=== PATIENT | male | born 1975 | race Caucasian/White ===

== ENCOUNTER 2017-05-11 13:21 | Observation (INO) | payer OTHER ==
[~2017-05-11] VITALS: Ht 167.6 cm; Wt 91.2 kg
[2017-05-11] VITALS (11 sets, daily range): BP systolic 125–140; BP diastolic 68–88; PULSE 59–90; RESP 13–20; O2SAT 95–98
--- NOTE | 2017-05-11 13:23 | ED.REPORT ---
HPI-Stroke / CVA May 11, 2017 ED Provider: Mateus Naik MD Patient is a 42 year old male who presents to the ED via EMS complaining of sudden onset left sided facial numbness onset 1305. Associated symptoms including blurred vision of his left eye, diaphoresis, dizziness and feeling confused. He also reports having a headache yesterday that has since resolved. Per the patient's boss, he was working on the computer when he began staring off , sweating and shaking. Then he told her that he was having spotty vision and didn't feel right. Patient denies neck pain. He states this has never happened before. Nursing Notes Stated Complaint: STROKE Nursing Notes Reviewed: Yes Allergies: Coded Allergies: Iodine and Iodide Containing Produc (Verified Allergy, Severe, 05/11/17) No Active Prescriptions or Reported Meds General Time Seen by Provider: 13:20 Chief Complaint Numbness Face left Hx Obtained From: Patient Arrived By: Ambulance Time last known well 1305 Sudden in Onset?: Yes Symptom Duration: Since onset Progression Since Onset: Waxes and wanes Severity: Current: No pain currently Associated with: Reports: Confusion Similar Sx Previous: No Risk Factors NIH Stroke Scale Level of Consciousness: Alert and responsive (0) Ask Month & Age: Both questions right (0) 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 (0) Horizontal EO Movements: None (0) Visual Reynolds: No visual loss (0) Facial Palsy: Normal symmetry (0) Right Arm Motor Drift (10s): No drift 10 sec (0) Left Arm Motor Drift (10s): No drift 10 sec (0) Right Leg Motor Drift (5s): No drift 5 sec (0) Left Leg Motor Drift (5s): No drift 5 sec (0) Limb Ataxia FNF/Heel-Johnson: Ataxia in 1 limb (1) (on the left) Sensation (Arms/Legs/Face): Pinprick less sharp (1) (decreased sensation on the left side of face) Language Aphasia: No aphasia, normal (0) Dysarthria: No dysarthria, normal (0) Extinction/Inattention: No exctinct/inattent (0) NIHSS Score: 2 Time NIHSS Performed: 13:31 Date NIHSS Performed: May 11, 2017 )( CVA Risk Stratification No Age >60, No Anticoag/bleed diathesis, No Prior CVA/TIA Risk factors reviewed Past Medical History Past Medical History none reported Smoking History Current Every Day Smoker Ambulatory Status Independent Review of Systems Eyes: Reports: Blurred left Musculoskeletal: Denies: Neck pain Skin: Reports Diaphoresis Neurologic: Reports: Dizziness, Numbness, Shaking, Vision change, Denies: Headache Psychiatric: Reports: Confusion Complete sys rev & neg: except as marked. Physical Exam Initial Vital Signs Vital Signs (First) Date Time Temp Pulse Resp B/P Pulse Ox O2 Delivery O2 Flow Rate FiO2 05/11/17 13:43 90 18 135/88 98 Room Air 05/11/17 15:52 36.4 General/Constitutional: Awake, Alert Head / Eyes: Atraumatic, Normocephalic, PERRL, EOMI decreased sensation on the left side Neck: Atraumatic, Supple Respiratory / Chest: Atraumatic, Breath sounds NL, Breath sounds = bilat, No respiratory distress Cardiovascular: Heart rate NL, Regular rhythm, Heart sounds NL Neurologic: Oriented X3, Speech NL decreased sensation on the left upper extremity delayed responses to month and year but able to answer correctly Upper Extremity / MS: Atraumatic, Inspection NL Lower Extremity / Pelvis / MS: Atraumatic, Inspection NL Skin: Atraumatic, Color NL, No rash, Warm, Dry Interpretation & Diagnostics Lab Results Interpretation Result Diagram: 05/12/17 0550 05/12/17 0550 Test 05/11/17 13:21 05/11/17 13:24 Prothrombin Time 9.5sec (8.1-12.5) Prothromb Time International Ratio 0.89ratio Activated Partial Thromboplast Time 25.6sec (22.8-33.0) Hemoglobin A1c 5.5% (4.8-5.6) Troponin T < 0.010ug/L (0.0-0.011) Triglycerides Level 59mg/dL (0-149) Cholesterol Level 160mg/dL (100-199) LDL Cholesterol, Calculated 98.200mg/dL (0-99) VLDL Cholesterol 11.800mg/dL HDL Cholesterol 50mg/dL (>39) Cholesterol/HDL Ratio 3.20 (0.0-4.4) ECG Interpretation ECG Interpretation: T wave inversion isolated in lead [address], T changes Time: 13:37 Interpreted by: ED physician Normal ECG Interpretation: Normal rate (80), Normal sinus rhythm X-Ray Chest Interpretation Chest Xray Interpretation: IMPRESSION: No acute disease Dictated by: Tye Draper M.D. on 05/11/2017 at 13:32 Approved by: Tye Draper M.D. on 05/11/2017 at 13:33 Interpretation / Wet Read by: Interpret - Radiologist CT Head Interpretation IMPRESSION: Normal CT brain scan, no intracranial hemorrhage or secondary signs of acute ischemic infarct. This study fulfills neurological imaging criteria for inclusion or exclusion of acute stroke therapies based on available published neurological imaging guidelines. Dictated by: Claudio Ceja M.D. on 05/11/2017 at 13:30 Approved by: Claudio Ceja M.D. on 05/11/2017 at 13:31 Interpretation / Wet Read by: Interpret - Radiologist Re-Eval/Medical Decision Med Decision/Clinical Course 42-year-old male presenting with episode of confusion, blurry vision, left-sided numbness. Code stroke on arrival. All symptoms resolved other than mild confusion and left facial numbness on arrival. CT scan no acute pathology. Discussed with stroke neurology at [facility] who recommended no TPA given low stroke scale. Recommended admission for her mental status, stroke workup. Labs unremarkable as above. Patient will be admitted for TIA stroke workup and altered mental status workup. Cannot rule out seizure versus other. Re-Evaluation/Progress : Time of Eval: 14:20 Re-Evaluation/Progress Note: Discussed results and plan for admit. Patient understands and agrees to plan. All questions were addressed Consultation #1: Consulted With: Neurology Call Returned at: 13:44 Note: Consult with Dr. Ramos, neurology at [facility], who recommends no tPA but admit for altered mental status and workup with non emergent CT anigo. Consultation #2: Referral / Consult Name: ANNIE TREVIZO DO Consulted With: Hospitalist Call Returned at: 16:37 Functional Tester Typewriters: Agrees with eval, Agrees with plan, Accepts admit Counseled Regarding: Diagnosis, Lab results, Need for admission Patient Discharge & Departure Impression: Primary Impression: Altered mental status Altered mental status type: disorientation Qualified Code: R41.0 - Disorientation, unspecified Additional Impression: TIA (transient ischemic attack) Transient cerebral ischemia type: unspecified Qualified Code: G45.9 - Transient cerebral ischemic attack, unspecified Disposition: ADMITTED TO HOSPITAL Discharge Condition All VS Reviewed: Yes Condition: Stable Referrals: NOPCP (PCP) Crit Care Except Billable Proc Time Spent: 30-74 minutes (41 minutes) Services Performed: Patient management by me, Time spent at bedside, Reviewing test results, Reviewing imaging, Discussing patient care, Documentation in record Scribe Attestation Portions of this note were transcribed by Odalys Brunson. I, Dr. Naik personally performed the history, physical exam and medical decision-making; I reviewed and confirmed the accuracy of the information in the transcribed note. Signed by: Kaity Adhikari, 05/11/17. Mateus Naik MD May 11, 2017 13:23 Whit Brunson May 11, 2017 13:36 Triglycerides Level 59mg/dL (0-149) Cholesterol Level 160mg/dL (100-199) LDL Cholesterol, Calculated 98.200mg/dL (0-99) VLDL Cholesterol 11.800mg/dL HDL Cholesterol 50mg/dL (>39) Cholesterol/HDL Ratio 3.20 (0.0-4.4) ECG Interpretation ECG Interpretation: T wave inversion isolated in lead [address], T changes Time: 13:37 Interpreted by: ED physician Normal ECG Interpretation: Normal rate (80), Normal sinus rhythm X-Ray Chest Interpretation Chest Xray Interpretation: IMPRESSION: No acute disease Dictated by: Tye Draper M.D. on 05/11/2017 at 13:32 Approved by: Tye Draper M.D. on 05/11/2017 at 13:33 Interpretation / Wet Read by: Interpret - Radiologist CT Head Interpretation IMPRESSION: Normal CT brain scan, no intracranial hemorrhage or secondary signs of acute ischemic infarct. This study fulfills neurological imaging criteria for inclusion or exclusion of acute stroke therapies based on available published neurological imaging guidelines. Dictated by: Claudio Ceja M.D. on 05/11/2017 at 13:30 Approved by: Claudio Ceja M.D. on 05/11/2017 at 13:31 Interpretation / Wet Read by: Interpret - Radiologist Re-Eval/Medical Decision Re-Evaluation/Progress : Time of Eval: 14:20 Re-Evaluation/Progress Note: Discussed results and plan for admit. Patient understands and agrees to plan. All questions were addressed Consultation #1: Consulted With: Neurology Call Returned at: 13:44 Note: Consult with Dr. Ramos, neurology at [facility], who recommends no tPA but admit for altered mental status and workup with non emergent CT anigo. Consultation #2: Referral / Consult Name: ANNIE TREVIZO DO Consulted With: Hospitalist Call Returned at: 16:37 Functional Tester Typewriters: Agrees with eval, Agrees with plan, Accepts admit Counseled Regarding: Diagnosis, Lab results, Need for admission Patient Discharge & Departure Impression: Primary Impression: Altered mental status Altered mental status type: disorientation Qualified Code: R41.0 - Disorientation, unspecified Additional Impression: TIA (transient ischemic attack) Transient cerebral ischemia type: unspecified Qualified Code: G45.9 - Transient cerebral ischemic attack, unspecified Disposition: ADMITTED TO HOSPITAL Discharge Condition All VS Reviewed: Yes Condition: Stable Referrals: NOPCP (PCP) Crit Care Except Billable Proc Time Spent: 30-74 minutes (41 minutes) Services Performed: Patient management by me, Time spent at bedside, Reviewing test results, Reviewing imaging, Discussing patient care, Documentation in record Scribe Attestation Portions of this note were transcribed by Odalys Brunson. I, Dr. Naik personally performed the history, physical exam and medical decision-making; I reviewed and confirmed the accuracy of the information in the transcribed note. Signed by: Kaity Adhikari, 05/11/17. Mateus Naik MD May 11, 2017 13:23 Whit Brunson May 11, 2017 13:36
[2017-05-11 13:29] LABS: BASOPHILS % (AUTO) 0.2 % (0-3); EOSINOPHILS % (AUTO) 2.2 % (0-5); MONOCYTES % (AUTO) 5.2 % (4-12); Mean Corpuscular Hemoglobin 30.4 pg (27.0-35.0); Mean Corpuscular Volume 87.7 fL (81-100); NEUTROPHILS % (AUTO) 59.6 % (40-74); Platelet Count 383 bil/L (150-400)
--- NOTE | 2017-05-11 13:33 | DRSVH ---
PROCEDURE: CT BRAIN TPA INDICATIONS: Stroke TECHNIQUE: Noncontrast 4.5 mm thick angled axial sections acquired from the foramen magnum to the vertex, with c oronal reformats. COMPARISON: None. FINDINGS: Image quality: Excellent. CSF spaces: Basal cisterns are patent. No extra-axial fluid collections. Ventricles are normal in size and shape. Brain: No midline shift. No intracranial masses or hemorrhage. Heredia-white matter interface is norm al. Skull and face: Calvarium and visualized facial bones are intact, without suspicious lesions. Sinuses: Visualized sinuses and mastoids are clear. IMPRESSION: Normal CT brain scan, no intracranial hemorrhage or secondary signs of acute ischemic infarct. This study fulfills neurological imaging criteria for inclusion or exclusion of acute stroke therapie s based on available published neurological imaging guidelines. Dictated by: Claudio Ceja M.D. on 05/11/2017 at 13:30 Approved by: Claudio Ceja M.D. on 05/11/2017 at 13:31
[2017-05-11 13:44] LABS: INR 0.89 ratio
[2017-05-11 13:52] LABS: TROPONIN T < 0.010 ug/L (0.0-0.011)
--- NOTE | 2017-05-11 14:35 | DRSVH ---
PROCEDURE: X-RAY CHEST ONE VIEW, PORTABLE ([id number]) INDICATIONS: dyspnea TECHNIQUE: One view of the chest was acquired. COMPARISON: [facility], , XR CHEST 2VW, 06/08/2015, 11:55. FINDINGS: Surgical changes and devices: None. Lungs and pleura: No pleural effusions or pneumothorax. Lungs are clear. Mediastinum: Mediastinal contours appear normal. Heart size is normal. Bones and chest wall: No suspicious bony lesions. Overlying soft tissues appear unremarkable. IMPRESSION: No acute disease Dictated by: Tye Draper M.D. on 05/11/2017 at 13:32 Approved by: Tye Draper M.D. on 05/11/2017 at 13:33
[2017-05-11] MEDS ORDERED: Labetalol 5 mg/mL 20 mL Inj IVPUSH PRN (16:10)
[2017-05-11] MEDS ORDERED: Polyethylene Glycol (PEG) 17 Gm Powder PO PRN (16:10)
[2017-05-11] MEDS ORDERED: Alum-Mag Hydrox-Simeth 30 mL Suspension PO PRN (16:10)
[2017-05-11] MEDS ORDERED: Ondansetron 2 mg/mL 2 mL Inj IVPUSH PRN (16:10)
[2017-05-11] MEDS ORDERED: hydrALAZINE 20 mg/mL Inj IVPUSH PRN (16:10)
--- NOTE | 2017-05-11 16:13 | NUR ---
Evaluation completed. Please go to "Notes" then click on "Assessments and Notes" (bottom left corner of screen). Then select appropriate discipline tab on top of screen.
--- NOTE | 2017-05-11 17:10 | PCM.HPMED ---
Subjective Date of Service May 11, 2017 Primary Provider: Admitting Physician: Nuris Maxwell MD Primary Care Physician: Matty Attending Physician: Nuris Maxwell MD Admit Status: From the Emergency Department, Admit to [facility] Team Chief Complaint: Altered mental status, possible TIA History of Present Illness: Mr. Petty is a 42-year-old male with no reported past medical history who presents to the ED via EMS secondary to strokelike symptoms. 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 today (one half hour into his shift) his sales service manager noticed that he began to stare into space and was sweaty and shaking. When asked how he felt he stated that he was having spotty vision and "did not feel right. During interview in the emergency department with mother present he states that he had a sudden onset of left-sided facial numbness, left sided blackened vision and left sided upper and lower extremity weakness/numbness. This was accompanied by a generalized confusion. At time of interview these symptoms had mostly resolved though he still states mild weakness in his left upper lower extremities as well as a right temporal headache. He is awake and alert and able to answer questions appropriately He states that this has never happened to him before, denies alcohol use, occasionally smokes marijuana - last use 2 days prior, and denies any other drug use. He is a one pack per day smoker, states he has a very poor diet consisting of fast food, often wakes up at night to snack. He leads a sedentary lifestyle, last night playing online computer games until approximately 0200 hours, and he does state that last night while playing these games he did develop a slight headache which he took aspirin for was some relief. He states he has had mild headaches on and off over the last 2 weeks and at time of interview states he is having a right temporal headache. Denies chest pain, shortness of breath, abdominal pain, GI or complaints, numbness or tingling in his extremities. Does state left upper lower extremity weakness. He denies any sick contacts, no current sexual contacts last intercourse May 2016. Travel to [place] last year, travel to [place] in 1995. In the emergency department chest x-ray and CT brain noncontrast were negative. Patient was given aspirin 300 mg via rectal suppository. Lab studies unremarkable. ER [facility] consult with Dr. Ramos, neurology at [facility] who recommended no TPA but admitted for altered mental status workup with nonemergent CT angiogram. Urinalysis pending at time of dictation. Review of Systems: A comprehensive review of systems was conducted with the patient and found to be negative except as above in the history of present illness. Allergies Coded Allergies: Iodine and Iodide Containing Produc (Verified Allergy, Severe, 05/11/17) Home Medications None PMH Patient reports right rotator cuff injury 6 + years ago, no surgical intervention Surgical History Patient reports none Family History Per patient and patient's mother present in the room: Maternal grandfather: passed from heart attack/stroke Paternal grandmother: with pacemaker Aunt: diabetes mellitus, heart disease Father: obesity status post gastric bypass surgery, intention tremor Mother: Healthy Social History Hx Alcohol Use: No Hx Substance Use: Yes (very infrequent / pot/// ) Smoking Status: Current Every Day Smoker (1 pack per day smoker) Exam Vital Signs Vital Sign - Last Date Time Temp Pulse Resp B/P Pulse Ox O2 Delivery O2 Flow Rate FiO2 05/11/17 15:52 36.4 64 13 127/78 98 Room Air Exam General: Awake and alert sitting up in ER [facility] in no acute distress, well- developed, well-nourished, appropriately interactive HEENT: Normocephalic, atraumatic. External ears without defect. Pupils equal, round, and reactive to light and accommodation. Oropharynx free of erythema and cobble stoning with moist mucosa. Neck: Supple with full range of motion. No jugular venous distension. No bruits. No lymphadenopathy or thyromegaly. Cardiovascular: Regular rate and rhythm with no murmurs, rubs, or gallops appreciated Pulmonary: Clear to auscultation bilaterally with no crackles, wheezes, or rhonchi. Normal respiratory effort with no use of accessory muscles. Abdomen: Bowel tones present. Soft, nontender, nondistended. No hepatosplenomegaly or masses appreciated. Extremities: No clubbing, cyanosis, edema. Mild left upper lower extremity weakness during strength testing. Skin: Normal temperature, turgor, and texture Neurological: Cranial nerves grossly intact. Psychiatric: Normal mood and affect. Alert and oriented to person, place, and time. Lab and Diagnostics Result Diagram: 05/11/17 1324 05/11/17 1324 X-Rays, CTs and MRIs . X-RAY CHEST ONE VIEW, PORTABLE IMPRESSION: No acute disease Dictated by: Tye Draper M.D. on 05/11/2017 CT BRAIN TPA IMPRESSION: Normal CT brain scan, no intracranial hemorrhage or secondary signs of acute ischemic infarct. This study fulfills neurological imaging criteria for inclusion or exclusion of acute stroke therapies based on available published neurological imaging guidelines. Dictated by: Claudio Ceja M.D. on 05/11/2017 Additional Diagnostics: NIH Stroke Scale Level of Consciousness: Alert and responsive (0) Ask Month & Age: Both questions right (0) Open/Close Eyes/Hand Tax Record Clerk: Performs both tasks (0) Horizontal EO Movements: None (0) Visual Reynolds: No visual loss (0) Facial Palsy: Normal symmetry (0) Right Arm Motor Drift (10s): No drift 10 sec (0) Left Arm Motor Drift (10s): No drift 10 sec (0) Right Leg Motor Drift (5s): No drift 5 sec (0) Left Leg Motor Drift (5s): No drift 5 sec (0) Limb Ataxia FNF/Heel-Johnson: Ataxia in 1 limb (1) (on the left) Sensation (Arms/Legs/Face): Pinprick less sharp (1) (decreased sensation on the left side of face) Language Aphasia: No aphasia, normal (0) Dysarthria: No dysarthria, normal (0) Extinction/Inattention: No exctinct/inattent (0) NIHSS Score: 2 Time NIHSS Performed: 13:31 Date NIHSS Performed: May 11, 2017 Assessment & Plan Mr. Petty is a 42-year-old male with no reported past medical history who is admitted for possible TIA. Altered mental status. POA. Under evaluation Possibly secondary to TIA, symptoms mostly resolved at time of admit CT imaging as above Current every day smoker, lipid panel within normal limits MR stroke protocol pending Echo pending ASA given in ED Urine pending Swallow eval pending Continue neuro checks Continue to monitor Disposition: Patient admitted under observational status pending MR stroke protocol GI Prophylaxis: H2 crescencio VTE Prophylaxis: Sub-Q Heparin (Unfractionated) Resuscitation Status: CPR: Attempt Resuscitation ANNIE TREVIZO DO May 11, 2017 17:10
--- NOTE | 2017-05-11 18:49 | NUR ---
Admit Pt admitted to [facility] room 3025 at approx 1830. Report received from HERIBERTO Ventura. Pt alert and oriented x4. Denies any pain, dizziness, nausea. Parents at bedside. Weight and VS obtained. Telemetry applied. Cares continue.
--- NOTE | 2017-05-11 20:50 | NUR ---
Admit/Neuro: Pt AOx3, speech clear. Pt states he has numbness on L side of face, smile asymmetrical with tongue deviation to the R. 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 Pt c/o GARCIA 11/07, refuses medication at this time. Pt educated on s/s of stroke and to contact nursing staff if any changes. Tele SR 80's per monitoring manager. Pt refused nicotine patch and Pepcid, offered care notes on statin, pt refused. Pt pleasant and cooperative with care. Admit complete.
--- NOTE | 2017-05-11 20:54 | NUR ---
Off floor for MRI Pt left floor at 2044 for MRI. Addendum: 05/11/17 at 2151 by CODY LEARY RN Back from MRI around 2139; tele back on
--- NOTE | 2017-05-11 22:24 | DRSVH ---
PROCEDURE: MRI STROKE PROTOCOL ([id number]) Pre- and post-contrast brain MRI, non-contrast brain MR angiogram, pre- and postcontrast neck MR eliane ogram INDICATIONS: TIA TECHNIQUE: Brain: Noncontrast axial T1 spin echo, axial T2 fast spin echo, sagittal and axial FLAIR, coronal T2 fast spin echo, axial gradient echo, axial diffusion and ADC through the brain. After the administr ation of contrast, axial 3D VIBE of the cranial vasculature and brain. Brain MRA: Non-contrast 3-D time of flight MR angiogram, with multiple glctrif-uhbuhjblo-zaxcmqfvrs (MIP) reformats performed. Neck MRA: Axial and sagittal TruFISP through the neck. Coronal dynamic MR angiogram during administ ration of contrast in the arterial and venous phases, with 3-dimenstional cbbdvib-zdxxmmqqy-vwjlpnrjo n (MIP) reformats constructed from subtraction images. COMPARISON: None. FINDINGS: Image quality: Excellent. BRAIN: CSF spaces: Ventricles are normal in size and shape. Basal cisterns are patent. No extra-axial flu id collections. Brain: No intracranial bleeds or mass effects. Heredia-white matter interface is normal. Diffusion we ighted images show no acute ischemic insults. Brainstem appears normal. Normal intravascular flow v oids are present. No abnormal intracranial enhancement. There is several foci of T2/FLAIR hyperinte nse signal within the periventricular regions particularly around the frontal horns bilaterally. Skull and face: Calvarial marrow signal is normal. Orbits appear normal. Sinuses: Sinuses and mastoids are clear. BRAIN MR ANGIOGRAM: Anterior circulation: Intracranial internal carotid arteries are normal in size and enhancement. Th e flow within the paired anterior cerebral arteries is normal and symmetric. The flow within the mid dle cerebral arteries is normal and symmetric. The anterior communicating artery is seen. No stenos es, occlusions, or aneurysms. Posterior circulation: The visualized portions of the vertebral arteries demonstrate normal caliber, and join to form a normal appearing basilar artery. The flow within the posterior cerebral arteries is normal and symmetric. No stenoses, occlusions, or aneurysms. NECK MR ANGIOGRAM: Carotids: Great vessels demonstrate a conventional anatomy as they arise from the aortic arch. The origins of the common carotid arteries appear patent. The calibers and courses of both common caroti d arteries are normal. The bifurcation regions appear normal bilaterally. The internal carotid silvina jj demonstrate normal course and caliber. Posterior circulation: The origins of the vertebral arteries appear patent. More superior portions of both vertebral arteries demonstrate normal course and caliber, and join to form a normal appearing basilar artery. Miscellaneous: Subclavian arteries appear patent. Pre-contrast images through the neck show no soft tissue abnormalities. IMPRESSION: 1. No acute intracranial process. No acute ischemia. 2. Focal periventricular hyperintense signal is above. It is overall nonspecific. This could be relat ed to early changes of chronic microvascular ischemia. However, given patient's age, etiologies such as migraine sequela, vasculitis or potentially demyelinating disease should be considered as appropri ate. 3. No areas of hemodynamically significant stenosis, vascular occlusion or aneurysmal dilation within the anterior circulation. 4. No areas of hemodynamically significant stenosis, vascular occlusion or aneurysmal dilation within the posterior circulation. 5. No areas of hemodynamically significant stenosis, vascular occlusion or aneurysmal dilation within the neck vasculature. The estimate of stenosis included in the report of the imaging study was calculated using the NASCET method Dictated by: Rebecca Kamara M.D. on 05/11/2017 at 22:18 Approved by: Rebecca Kamara M.D. on 05/11/2017 at 22:23
[2017-05-12 00:05] VITALS: PULSE 60
[2017-05-12 00:09] VITALS: BP 114/73; PULSE 58; RESP 18; O2SAT 97
[2017-05-12] MEDS: Heparin 5,000 Unit/mL Inj SUBQ SCH ×2 (01:03→08:47)
--- NOTE | 2017-05-12 04:15 | NUR ---
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 Smile still asymmetrical with improvement throughout the night. AOx3, pleasant and cooperative with care.
[2017-05-12 04:38] VITALS: BP 100/64; PULSE 55; RESP 18; O2SAT 96
[2017-05-12 06:21] LABS: BASOPHILS % (AUTO) 0.2 % (0-3); EOSINOPHILS % (AUTO) 3.7 % (0-5); MONOCYTES % (AUTO) 5.8 % (4-12); Mean Corpuscular Hemoglobin 30.6 pg (27.0-35.0); Mean Corpuscular Volume 88.9 fL (81-100); NEUTROPHILS % (AUTO) 49.6 % (40-74); Platelet Count 311 bil/L (150-400)
[2017-05-12 09:01] VITALS: PULSE 61
[2017-05-12 09:17] VITALS: BP 113/75; PULSE 64; RESP 18; O2SAT 94
--- NOTE | 2017-05-12 09:36 | NUR ---
Evaluation completed. Please go to "Notes" then click on "Assessments and Notes" (bottom left corner of screen). Then select appropriate discipline tab on top of screen.
--- NOTE | 2017-05-12 11:51 | PCM.DIMED ---
Discharge Instructions Date of Service May 12, 2017 Dates of Hospitalization May 11, 2017 at 16:09 Discharge Diagnosis Discharge Diagnosis acute dx probable TIA or early demyelinating disease Diet Discharge Diet: Low fat, Low Sodium, Heart Healthy Call your provider Call your provider for: Other (blurry vision, worsening weakness, numbness) Patient Instructions Patient Instructions You were hospitalized with symptoms concerning for stroke. CT scan and MRI and MR angiogram didn't show any evidence of acute stroke but abnormal findings. Since your condition already improved clinically, you were released from hospital. Please follow up echocardiogram result with new primary doctor and follow up with neurologist as well. Please monitor your symptoms closely, if it gets worse, please return to hospital immediately Follow-up Provider: [facility] Follow-up with PCP in: 1 week Provider: Wale Jolly MD Follow-up in: 2 weeks Nuris Maxwell MD May 12, 2017 11:51
--- NOTE | 2017-05-12 12:03 | DRSVH ---
[facility] [address] [place] [address] Echocardiogram Report Name: ALBAN MORRISON Date: 05/12/2017 Height: 66 in Hospital Exam Location: [facility] Weight: 201 lb Gender: Male BSA: 2.0 m2 : 1975 Age: 42 yrs BP: 100/64 mmHg Reason For Study: TIA Ordering Physician: Performed By: Lynda Muniz Interpretation Summary Left ventricular wall thickness is borderline increased. The ejection fraction is estimated to be 55-60%. Injection of contrast documented no interatrial shunt. There is no significant valvular heart disease. Procedure: A two-dimensional transthoracic echocardiogram with color flow and Doppler was performed. The study quality was technically adequate. There is no prior echocardiogram noted for this patient. A saline contrast injection was performed to assess for cardiac shunting. The patient was in normal sinus rhythm during the exam. Left Ventricle: The left ventricle is normal in size. Left ventricular wall thickness is borderline increased. The ejection fraction is estimated to be 55-60%. There are no focal wall motion abnormalities. Assessment of diastolic parameters indicates normal left ventricular diastolic function and normal filling pressures. Right Ventricle: The right ventricle is normal in size and function. Atria: Both atria are normal in size. Injection of contrast documented no interatrial shunt. Mitral Valve: The mitral valve is normal in structure and function. The mitral valve leaflets are slightly calcified. There is trace mitral regurgitation. Aortic Valve: The aortic valve is normal in structure and function. No aortic regurgitation is present. Tricuspid Valve: The tricuspid valve is normal in structure and function. There is trace tricuspid regurgitation. The right ventricular systolic pressure is estimated at 26 mmHg assuming a right atrial pressure of 3 mm Hg. Pulmonic Valve: The pulmonic valve is not well visualized. Great Vessels: The aortic root is normal size. The ascending aorta is normal in size. The aortic arch is normal in size. The IVC is of normal diameter and collapses greater than 50% with a sniff. This suggests a low right atrial pressure of 3 mm Hg. Pericardium/ Pleura There is no pericardial effusion. MMode/2D Measurements & Calculations LVIDd: 4.3 cm RA long axis LVOT diam: 2.1 cm LVIDs: 2.7 cm LA A2 area: 14.9 cm AoV Opening FS: 36.7 % LA A4 area: 15.1 cm RA area EPSS: 0.06 cm LA length (vol) Ao root diam IVSd: 0.96 cm : 16.1 cm LVPWd: 1.1 cm LA vol: 37.2 ml RA vol asc Aorta Diam LA vol index : 40.0 ml RA Ao Arch Diam (Prox : 20.0 mm2 Trans): 2.7 cm IVC diam: 1.3 cm LV castro. diameter/BSA LV sys. diameter/BSA RVD1 (basal) RVD2 (mid): 2.6 cm (cm/m^2): 2.1 (cm/m^2): 1.3 TAPSE: 2.5 cm Doppler Measurements & Calculations Ao V2 max MV E max beau MV E/A: 2.0 TR max beau : 134.4 cm/sec : 100.6 cm/sec Med Peak E' Beau : 241.6 cm/sec Ao max PG MV A max beau TR max PG : 7.2 mmHg : 51.3 cm/sec E/E' med: 9.0 : 23.3 mmHg Ao mean PG MV P1/2t: 54.5 msec Lat Peak E' Beau PA V2 max : 110.8 cm/sec LVOT Max Beau E/E' lat: 5.3 PA mean PG : 102.5 cm/sec E/e' average: 7.1 PA Accel Time KING(I,D): 2.9 cm : 0.11 sec sev ratio MV dec time MV P1/2t max beau Ao V2 mean LV V1 max PG : 0.18 sec : 94.3 cm/sec MVA(P1/2t): 4.0 cm2 Ao V2 VTI: 26.5 cmLV V1 VTI KING(V,D): 2.7 cm2 : 21.2 cm PA V2 mean KING indexed to BSA : 72.1 cm/sec (cm^2/m^2): 1.4 Electronically signed by: Yusuf Hatch on [place] Physician:05/12/2017 12:02 PM
--- NOTE | 2017-05-12 13:15 | NUR ---
Discharge Pt discharged to home at 1313. Ambulatory off unit, accompanied by RN and mom. All pt belongings sent with pt, and money and credit cards retrieved from the safe. Discharge instructions given and explained. No new prescriptions given, and instructed to follow up with PCP and neurology. Pt verbalizes understanding.
--- NOTE | 2017-05-12 13:19 | NUR ---
Social Work-screening/discharge: Data:EMR reviewed. Pt is a 42 y/o male who was admitted on 05/11/17 for TIA per H&P. Pt's insurance is [id number] and PCP is Not listed. EMR reviewed. SW attempted to see pt, but SW updated by RN that pt has already discharged. PT/OT have cleared pt for home no needs.No MD order received. No discharge needs identified. All updated and agreeable to plan. Assessment:pt who is independent at baseline. Plan:Pt to discharge home today via POV. No discharge needs identified. All updated and agreeable to plan. EDITA Chu
--- NOTE | 2017-05-12 13:53 | NUR ---
Evaluation completed. Please go to "Notes" then click on "Assessments and Notes" (bottom left corner of screen). Then select appropriate discipline tab on top of screen.
--- NOTE | 2017-05-12 16:02 | PCM.DC.MED ---
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 COMPARISON: None. FINDINGS: Image quality: Excellent. CSF spaces: Basal cisterns are patent. No extra-axial fluid collections. Ventricles are normal in size and shape. Brain: No midline shift. No intracranial masses or hemorrhage. Heredia-white matter interface is normal. Skull and face: Calvarium and visualized facial bones are intact, without suspicious lesions. Sinuses: Visualized sinuses and mastoids are clear. IMPRESSION: Normal CT brain scan, no intracranial hemorrhage or secondary signs of acute ischemic infarct. This study fulfills neurological imaging criteria for inclusion or exclusion of acute stroke therapies based on available published neurological imaging guidelines. Dictated by: Claudio Ceja M.D. on 05/11/2017 at 13:30 Approved by: Claudio Ceja M.D. on 05/11/2017 at 13:31 PROCEDURE: MRI STROKE PROTOCOL ([id number]) Pre- and post-contrast brain MRI, non-contrast brain MR angiogram, pre- and postcontrast neck MR angiogram INDICATIONS: TIA TECHNIQUE: Brain: Noncontrast axial T1 spin echo, axial T2 fast spin echo, sagittal and axial FLAIR, coronal T2 fast spin echo, axial gradient echo, axial diffusion and ADC through the brain. After the administration of contrast, axial 3D VIBE of the cranial vasculature and brain. Brain MRA: Non-contrast 3-D time of flight MR angiogram, with multiple maximum- intensity-projection (MIP) reformats performed. Neck MRA: Axial and sagittal TruFISP through the neck. Coronal dynamic MR angiogram during administration of contrast in the arterial and venous phases, with 3-dimenstional nogthci-odvyedejb-vfdhlvxoxj (MIP) reformats constructed from subtraction images. COMPARISON: None. FINDINGS: Image quality: Excellent. BRAIN: CSF spaces: Ventricles are normal in size and shape. Basal cisterns are patent. No extra-axial fluid collections. Brain: No intracranial bleeds or mass effects. Heredia-white matter interface is normal. Diffusion weighted images show no acute ischemic insults. Brainstem appears normal. Normal intravascular flow voids are present. No abnormal intracranial enhancement. There is several foci of T2/FLAIR hyperintense signal within the periventricular regions particularly around the frontal horns bilaterally. Skull and face: Calvarial marrow signal is normal. Orbits appear normal. Sinuses: Sinuses and mastoids are clear. BRAIN MR ANGIOGRAM: Anterior circulation: Intracranial internal carotid arteries are normal in size and enhancement. The flow within the paired anterior cerebral arteries is normal and symmetric. The flow within the middle cerebral arteries is normal and symmetric. The anterior communicating artery is seen. No stenoses, occlusions, or aneurysms. Posterior circulation: The visualized portions of the vertebral arteries demonstrate normal caliber, and join to form a normal appearing basilar artery. The flow within the posterior cerebral arteries is normal and symmetric. No stenoses, occlusions, or aneurysms. NECK MR ANGIOGRAM: Carotids: Great vessels demonstrate a conventional anatomy as they arise from the aortic arch. The origins of the common carotid arteries appear patent. The calibers and courses of both common carotid arteries are normal. The bifurcation regions appear normal bilaterally. The internal carotid arteries demonstrate normal course and caliber. Posterior circulation: The origins of the vertebral arteries appear patent. More superior portions of both vertebral arteries demonstrate normal course and caliber, and join to form a normal appearing basilar artery. Miscellaneous: Subclavian arteries appear patent. Pre-contrast images through the neck show no soft tissue abnormalities. IMPRESSION: 1. No acute intracranial process. No acute ischemia. 2. Focal periventricular hyperintense signal is above. It is overall nonspecific. This could be related to early changes of chronic microvascular ischemia. However, given patient's age, etiologies such as migraine sequela, vasculitis or potentially demyelinating disease should be considered as appropriate. 3. No areas of hemodynamically significant stenosis, vascular occlusion or aneurysmal dilation within the anterior circulation. 4. No areas of hemodynamically significant stenosis, vascular occlusion or aneurysmal dilation within the posterior circulation. 5. No areas of hemodynamically significant stenosis, vascular occlusion or aneurysmal dilation within the neck vasculature. The estimate of stenosis included in the report of the imaging study was calculated using the NASCET method Dictated by: Rebecca Kamara M.D. on 05/11/2017 at 22:18 Approved by: Rebecca Kamara M.D. on 05/11/2017 at 22:23 . X-RAY CHEST ONE VIEW, PORTABLE IMPRESSION: No acute disease Dictated by: Tye Draper M.D. on 05/11/2017 CT BRAIN TPA IMPRESSION: Normal CT brain scan, no intracranial hemorrhage or secondary signs of acute ischemic infarct. This study fulfills neurological imaging criteria for inclusion or exclusion of acute stroke therapies based on available published neurological imaging guidelines. Dictated by: Claudio Ceja M.D. on 05/11/2017 Other Diagnostics NIH Stroke Scale Level of Consciousness: Alert and responsive (0) Ask Month & Age: Both questions right (0) Open/Close Eyes/Hand Water Regulator And Valve Repairer: Performs both tasks (0) Horizontal EO Movements: None (0) Visual Reynolds: No visual loss (0) Facial Palsy: Normal symmetry (0) Right Arm Motor Drift (10s): No drift 10 sec (0) Left Arm Motor Drift (10s): No drift 10 sec (0) Right Leg Motor Drift (5s): No drift 5 sec (0) Left Leg Motor Drift (5s): No drift 5 sec (0) Limb Ataxia FNF/Heel-Johnson: Ataxia in 1 limb (1) (on the left) Sensation (Arms/Legs/Face): Pinprick less sharp (1) (decreased sensation on the left side of face) Language Aphasia: No aphasia, normal (0) Dysarthria: No dysarthria, normal (0) Extinction/Inattention: No exctinct/inattent (0) NIHSS Score: 2 Time NIHSS Performed: 13:31 Date NIHSS Performed: May 11, 2017 Brief History HPI obtained on 05/11 Mr. Petty is a 42-year-old male with no reported past medical history who presents to the ED via EMS secondary to strokelike symptoms. 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 today (one half hour into his shift) his technical sales manager noticed that he began to stare into space and was sweaty and shaking. When asked how he felt he stated that he was having spotty vision and "did not feel right. During interview in the emergency department with mother present he states that he had a sudden onset of left-sided facial numbness, left sided blackened vision and left sided upper and lower extremity weakness/numbness. This was accompanied by a generalized confusion. At time of interview these symptoms had mostly resolved though he still states mild weakness in his left upper lower extremities as well as a right temporal headache. He is awake and alert and able to answer questions appropriately He states that this has never happened to him before, denies alcohol use, occasionally smokes marijuana - last use 2 days prior, and denies any other drug use. He is a one pack per day smoker, states he has a very poor diet consisting of fast food, often wakes up at night to snack. He leads a sedentary lifestyle, last night playing online computer games until approximately 0200 hours, and he does state that last night while playing these games he did develop a slight headache which he took aspirin for was some relief. He states he has had mild headaches on and off over the last 2 weeks and at time of interview states he is having a right temporal headache. Denies chest pain, shortness of breath, abdominal pain, GI or complaints, numbness or tingling in his extremities. Does state left upper lower extremity weakness. He denies any sick contacts, no current sexual contacts last intercourse May 2016. Travel to [place] last year, travel to [place] in 1995. In the emergency department chest x-ray and CT brain noncontrast were negative. Patient was given aspirin 300 mg via rectal suppository. Lab studies unremarkable. ER [facility] consult with Dr. Ramos, neurology at [facility] who recommended no TPA but admitted for altered mental status workup with nonemergent CT angiogram. Urinalysis pending at time of dictation. Hospital Course Mr. Petty is a 42-year-old male with no reported past medical history who is admitted for possible TIA. Patient was admitted with sudden onset of partial vision changes, associated with left sided weakness and numbness. Although visual change was resolved, not associated with headache. Given persistent paresthesia, active smoking history, sedentary lifestyle, no medical follow-up, this was concerning for ischemic stroke or embolic phenomena. CT head did not show any bleeding. Patient remained grossly intact neurologically. MR stroke protocol showed on expected bilateral periventricular enhancement on frontal lobes, concerning for demyelinating disease, vasculitis or chronic microvascular changes. Images and case were discussed with Dr. Ramos at [facility]. given his sudden onset presentation, it was not believed to be vasculitis or demyelinating disease. Over inflammatory markers including WBC, ESR, CRP was essentially unremarkable. ANCA panel were sent out. GIven largely resolved sx, pt deemed safe for d/c and follow up with new PCP at residency clinic and neurology. TTE, EKG, telemetry was unremarkable. Patient was strongly encouraged healthy lifestyle, smoking cessation, monitor any involvement all his current symptoms. Altered mental status. POA. Under evaluation Possibly secondary to TIA, symptoms mostly resolved at time of admit CT imaging as above Current every day smoker, lipid panel within normal limits MR stroke protocol pending Echo pending ASA given in ED Urine pending Swallow eval pending Continue neuro checks Continue to monitor Disposition: Patient admitted under observational status pending MR stroke protocol Exam Vital Signs (Last) Date Time Temp Pulse Resp B/P Pulse Ox O2 Delivery O2 Flow Rate FiO2 05/12/17 09:17 36.9 64 18 113/75 94 Room Air Exam Patient was examined on the day of discharge neuro exam: normal gait, CN2-12 grossly intact Test 05/11/17 13:21 05/11/17 13:24 05/12/17 05:50 05/12/17 07:30 Prothrombin Time 9.5sec (8.1-12.5) Prothromb Time International Ratio 0.89ratio Activated Partial Thromboplast Time 25.6sec (22.8-33.0) Hemoglobin A1c 5.5% (4.8-5.6) Troponin T < 0.010ug/L (0.0-0.011) Triglycerides Level 59mg/dL (0-149) Cholesterol Level 160mg/dL (100-199) LDL Cholesterol, Calculated 98.200mg/dL (0-99) VLDL Cholesterol 11.800mg/dL HDL Cholesterol 50mg/dL (>39) Cholesterol/HDL Ratio 3.20 (0.0-4.4) White Blood Count 10.1th/mm3 (3.8-10.1) Red Blood Count 5.13mil/mm3 (4.40-5.80) Hemoglobin 15.7g/dL (13.8-17.2) Hematocrit 45.6% (41.0-50.0) Mean Corpuscular Volume 88.9fL (81-100) Mean Corpuscular Hemoglobin 30.6pg (27.0-35.0) Mean Corpuscular Hemoglobin Concent 34.4% (32.0-37.0) Red Cell Distribution Width 12.4% (12.3-15.4) Platelet Count 311bil/L (150-400) Neutrophils (%) (Auto) 49.6% (40-74) Lymphocytes (%) (Auto) 40.5% (14-46) Monocytes (%) (Auto) 5.8% (4-12) Eosinophils (%) (Auto) 3.7% (0-5) Basophils (%) (Auto) 0.2% (0-3) Erythrocyte Sedimentation Rate 1mm/hr (0-15) Sodium Level 139mEq/L (134-144) Potassium Level 4.5mEq/L (3.5-5.2) Chloride Level 103mEq/L (97-108) Carbon Dioxide Level 22mmol/L (18-29) Blood Urea Nitrogen 18mg/dL (6-24) Creatinine 0.90mg/dL (0.76-1.27) Estimat Glomerular Filtration Rate 99mL/min (>59) Glucose Level 95mg/dL (60-99) Calcium Level 8.7mg/dL (8.5-10.1) Total Bilirubin 0.3mg/dL (0.0-1.2) Aspartate Amino Transf (AST/SGOT) 20U/L (0-50) Alanine Aminotransferase (ALT/SGPT) 18U/L (0-44) Alkaline Phosphatase 54U/L (25-150) C-Reactive Protein 0.1mg/dL (0.0-0.5) Total Protein 6.6g/dL (6.4-8.4) Albumin 3.9g/dL (3.4-5.0) Discharge Medications No Active Prescriptions or Reported Meds Followup Plan Disposition: home Discharge Diet: Low fat, Low Sodium, Heart Healthy Patient Instructions You were hospitalized with symptoms concerning for stroke. CT scan and MRI and MR angiogram didn't show any evidence of acute stroke but abnormal findings. Since your condition already improved clinically, you were released from hospital. Please follow up echocardiogram result with new primary doctor and follow up with neurologist as well. Please monitor your symptoms closely, if it gets worse, please return to hospital immediately Follow-up Provider: [facility] Follow-up with PCP in: 1 week Provider: Wale Jolly MD Follow-up in: 2 weeks Time spent 65min Nuris Maxwell MD May 12, 2017 16:02
[2017-05-15 15:08] LABS: Antiproteinase 3 (PR-3) Abs <3.5 U/mL (0.0-3.5); Perinuclear (P-ANCA) <1:20 titer (Neg:<1:20)
== END 2017-05-12 13:27 | disposition home or self-care (01) ==
LOC: SED 13:21 → MPC 16:09
PROVIDERS: ADMIT Internal Medicine; ATTEND Internal Medicine
DX: R41.82 Altered mental status, unspecified (principal); H53.9 Unspecified visual disturbance; R53.1 Weakness; R20.0 Anesthesia of skin; G45.9 Transient cerebral ischemic attack, unspecified; F17.210 Nicotine dependence, cigarettes, uncomplicated
CPT/HCPCS: 36415; 70450; 70549; 70553; 71010; 80053; 80061; 83036; 83520; 84484; 85025; 85610; 85651; 85730; 86038; 86140; 86255; 92610; 93005; 97161; 97167; 99291; A9585; C8929; G0378; J1644